=== PATIENT | male | born 1985 | race Caucasian/White ===

== ENCOUNTER 2019-06-04 14:56 | Emergency (ER) | payer OTHER ==
[2019-06-04 15:02] VITALS: BP 135/72
[2019-06-04] MEDS ORDERED: predniSONE 20 MG TABLET PO STA (15:09)
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
== END 2019-06-04 15:52 | disposition home or self-care (01) ==
LOC: ED 14:56
DX: T63.441A Toxic effect of venom of bees, accidental (unintentional), initial encounter (principal); R22.0 Localized swelling, mass and lump, head
CPT/HCPCS: 99282; 99284; J7512